=== PATIENT | male | born 1990 | race African-American/Black ===

== ENCOUNTER 2023-08-09 22:19 | Emergency (ER) | payer MEDICAID ==
[~2023-08-09] VITALS: Ht 165.1 cm; Wt 61.4 kg
[2023-08-09 22:25] VITALS: TEMP 98.3
[2023-08-09] MEDS ORDERED: NS 1,000 ML IV ONE ×2 (22:45)
[2023-08-09 22:47] LABS: BASO % 0.4 % (0.0-2.0); EOS # 0.2 K/mm3 (0.0-0.7); EOS % 3.2 % (0.0-4.0); GRAN # 2.5 K/mm3 (1.4-6.5); GRAN % 43.7 % (42.2-75.2); HEMATOCRIT 44.8 % (42.0-52.0); HEMOGLOBIN 14.9 g/dl (13.5-18.0); LYMPH # 2.6 K/mm3 (1.2-3.4); LYMPH % 45.9 % (20.0-51.0); MEAN CELL VOLUME 86 fl (80.0-100.0); MEAN CORPUSCULAR HEMOGLOBIN 29 pg (27-31); MEAN CORPUSCULAR HGB CONC 33 g/dl (33.0-37.0); MEAN PLATELET VOLUME 10.2 fl (7.4-10.4); MONO # 0.4 K/mm3 (0.1-0.6); MONO % 6.6 % (1.7-9.3); PLATELET COUNT 191 K/mm3 (130-400)
[2023-08-09 22:54] LABS: INR 1.2 (0.8-3.0); PROTHROMBIN TIME 12.6 SECONDS (9.7-12.8)
[2023-08-09 22:57] LABS: PARTIAL THROMBOPLASTIN TIME 34.6 SECONDS (26.0-37.0)
[2023-08-09 23:02] LABS: D-DIMER < 200.00 ng/mLDDu (200-230)
[2023-08-09 23:14] LABS: ALANINE AMINOTRANSFERASE 30 U/L (0-55); ALBUMIN 4.3 gm/dL (3.5-5.0); ALKALINE PHOSPHATASE 53 U/L (40-150); ANION GAP 11 mmol/L (7-16); AST,SGOT 26 U/L (5-34); BILIRUBIN,TOTAL 0.8 mg/dL (0.2-1.2); BLOOD UREA NITROGEN 19 mg/dL (9-21); CALCIUM 9.8 mg/dL (8.4-10.2); CARBON DIOXIDE 24 mmol/L (22-29); CHLORIDE 107 mmol/L (98-107); CREATININE, serum 1.31 mg/dL (0.72-1.25); GLUCOSE 101 mg/dL (70-99); LIPASE 34 U/L (8-78); POTASSIUM 3.6 mmol/L (3.5-4.5); SODIUM 142 mmol/L (136-145); TOTAL PROTEIN 7.6 gm/dL (6.2-8.1)
[2023-08-09 23:21] LABS: TROPONIN-I < 0.010 ng/mL (0.00-0.033)
[2023-08-10] MEDS ORDERED: Iohexol 350 - 100 ML VIAL IV ONE (00:04)
[2023-08-10] MEDS ORDERED: NS 50 ML IV SCH (00:05)
[2023-08-10 01:52] VITALS: BP 120/80; PULSE 56
== END 2023-08-10 01:54 | disposition home or self-care (01) ==
LOC: COL.ER 22:19
PROVIDERS: Emergency Medicine
DX: R07.89 Other chest pain (principal); R91.1 Solitary pulmonary nodule; R06.02 Shortness of breath
CPT/HCPCS: J7030; Q9967